=== PATIENT | male | born 1950 | race Caucasian/White ===

== ENCOUNTER 2017-07-18 16:06 | Emergency (ER) | payer MEDICARE ==
[~2017-07-18] VITALS: Ht 170.2 cm; Wt 75.0 kg
[2017-07-18] MEDS ORDERED: ASPI81TA50 PO (16:20)
[2017-07-18] MEDS ORDERED: HYDR25TA6 PO (16:21)
[2017-07-18] MEDS ORDERED: METF500T4 PO (16:21)
[2017-07-18] MEDS ORDERED: [UNRECOGNIZED DRUG - REMARK] (16:21)
[2017-07-18] MEDS ORDERED: LOVA10TA PO (16:21)
[2017-07-18] MEDS ORDERED: LISI-170 PO (16:21)
[2017-07-18] MEDS ORDERED: SODIUM CHLORIDE FLUSH 10ML SYR IVF ONE (17:00)
[2017-07-18] MEDS ORDERED: SODIUM CHLORIDE 0.9% 1,000ML IVBOLUS ONE (17:00)
[2017-07-18 17:14] LABS: HEMATOCRIT 42.7 % (39.2-51.8); HEMOGLOBIN 14.1 g/dL (13.7-18.0)
[2017-07-18 17:26] LABS: ASPARTATE AMINO TRANSFERASE 13 U/L (15-37); BLOOD UREA NITROGEN 22 mg/dL (7-18)
[2017-07-18 17:31] LABS: IS PT STATUS REG ER OR PRE ER? YES
[2017-07-18 19:40] VITALS: BP 133/81
== END 2017-07-18 19:43 | disposition home or self-care (01) ==
LOC: ED 18:40
DX: R55 Syncope and collapse (principal); E86.0 Dehydration; I11.9 Hypertensive heart disease without heart failure; E11.9 Type 2 diabetes mellitus without complications
CPT/HCPCS: 36415; 71010; 80053; 83880; 84484; 85025; 85610; 93005; 96360; 99285; J7030

== ENCOUNTER → 2017-08-30 | Outpatient (CLI) | payer MEDICARE ==
[~2017-08-30] MED LIST: ASPI81TA50 PO; HYDR25TA6 PO; LISI-170 PO; LOVA10TA PO; METF500T4 PO; [UNRECOGNIZED DRUG - REMARK]
== END | disposition home or self-care (01) ==
LOC: CFH 14:05
PROVIDERS: ATTEND Internal Medicine Cardiovascular Disease
DX: I08.3 Combined rheumatic disorders of mitral, aortic and tricuspid valves (principal); I77.819 Aortic ectasia, unspecified site; E11.9 Type 2 diabetes mellitus without complications; E78.5 Hyperlipidemia, unspecified; Z87.891 Personal history of nicotine dependence
CPT/HCPCS: 93306

== ENCOUNTER 2018-02-16 10:24 | Inpatient (IN) | payer MEDICARE ==
[~2018-02-16] VITALS: Ht 167.6 cm; Wt 67.6 kg
[2018-02-16 10:59] LABS: BASOPHILS # (AUTO) 0.02 x10^3/uL (0-0.1); BASOPHILS % (AUTO) 0 % (0-1); EOSINOPHILS % (AUTO) 0 % (1-7); LYMPHOCYTES # (AUTO) 0.49 x10^3/uL (1-3.4); LYMPHOCYTES % (AUTO) 3 % (22-44); MD NO; MEAN CORPUSCULAR HEMOGLOBIN 31.9 pg (27.5-34.5); MEAN CORPUSCULAR HGB CONC 33.5 g/dL (33.2-36.2); MEAN CORPUSCULAR VOLUME 95.2 fL (81-97); MEAN PLATELET VOLUME 8.9 fL (7.4-10.4); MONOCYTES # (AUTO) 0.59 x10^3/uL (0.2-0.8); MONOCYTES % (AUTO) 4 % (2-9); NEUTROPHILS # (AUTO) 14.53 x10^3/uL (1.8-6.8); NEUTROPHILS % (AUTO) 93 % (42-75); PLATELET COUNT 262 x10^3/uL (130-400); RED CELL DISTRIBUTION WIDTH 12.6 % (9.4-14.8)
[2018-02-16] MEDS ORDERED: OMNIPAQUE 350 MG/ML, 100ML BOTTLE ONE (10:59)
[2018-02-16] MEDS ORDERED: SODIUM CHLORIDE 0.9%, 500ML IVBOLUS ONE (11:00)
[2018-02-16 11:09] LABS: INTERNATIONAL NORMALIZED RATIO 1.09 (0.93-1.1); PROTHROMBIN TIME 11.3 Seconds (9.6-11.5)
[2018-02-16] MEDS ORDERED: ALTEPLASE 1 MG/ML ONE (11:22)
[2018-02-16] MEDS ORDERED: ALTEPLASE IV ONE ×3 (11:30→12:30)
[2018-02-16] MEDS: ALTEPLASE IV ONE ×2 (11:35→12:26)
[2018-02-16] MEDS ORDERED: ATOR20TA9 PO (12:02)
[2018-02-16] MEDS ORDERED: strontium PO (12:17)
[2018-02-16] MEDS ORDERED: DONE23TA3 PO (12:17)
[2018-02-16] MEDS ORDERED: HYDR12.58 PO (12:17)
[2018-02-16] MEDS ORDERED: LOSA50TA6 PO (12:17)
[2018-02-16] MEDS ORDERED: METF500T4 PO (12:17)
[2018-02-16] MEDS ORDERED: PIOG15TA2 PO (12:17)
[2018-02-16] MEDS ORDERED: ENALAPRILAT 1.25 MG/ML, 2ML IV PRN (15:00)
[2018-02-16] MEDS ORDERED: DOCUSATE 100 MG CAPSULE PO PRN (15:00)
[2018-02-16] MEDS ORDERED: POLYETHYLENE GLYCOL 17 GM PACKET PO PRN (15:00)
[2018-02-16] MEDS ORDERED: BISACODYL 10 MG SUPP PR PRN (15:00)
[2018-02-16] MEDS ORDERED: ACETAMINOPHEN 650 MG/20.3 ML UDC PO PRN (15:00)
[2018-02-16] MEDS: LACTATED RINGERS 1,000 ML IV SCH (16:19)
[2018-02-16 16:29] VITALS: BP 138/93
[2018-02-16] MEDS: ATORVASTATIN 80 MG TABLET PO SCH (19:43)
[2018-02-16] MEDS: INSULIN LISPRO 100 UNITS/ML, PEN SQ-INSULIN SCH (20:24)
[2018-02-17 04:00] VITALS: BP 142/92
[2018-02-17 04:16] LABS: BASOPHILS # (AUTO) 0.03 x10^3/uL (0-0.1); BASOPHILS % (AUTO) 0 % (0-1); EOSINOPHILS % (AUTO) 1 % (1-7); LYMPHOCYTES # (AUTO) 1.81 x10^3/uL (1-3.4); LYMPHOCYTES % (AUTO) 18 % (22-44); MD NO; MEAN CORPUSCULAR HEMOGLOBIN 32.8 pg (27.5-34.5); MEAN CORPUSCULAR VOLUME 96.4 fL (81-97); MEAN PLATELET VOLUME 8.8 fL (7.4-10.4); MONOCYTES # (AUTO) 0.97 x10^3/uL (0.2-0.8); MONOCYTES % (AUTO) 9 % (2-9); NEUTROPHILS # (AUTO) 7.33 x10^3/uL (1.8-6.8); NEUTROPHILS % (AUTO) 72 % (42-75); PLATELET COUNT 280 x10^3/uL (130-400); RED BLOOD COUNT 4.31 x10^6/uL (4.38-5.82); RED CELL DISTRIBUTION WIDTH 12.8 % (9.4-14.8)
[2018-02-17 04:28] LABS: ALBUMIN 3.5 g/dL (3.4-5.0); ANION GAP 7 mmol/L (5-15); CHLORIDE 104 mmol/L (98-107)
[2018-02-17 04:35] LABS: HEMOGLOBIN A1C 7.7 % (4.2-6.3)
[2018-02-17 04:53] LABS: ALANINE AMINOTRANSFERASE 27 U/L (12-78); ALKALINE PHOSPHATASE 31 U/L (45-117); BILIRUBIN,TOTAL 0.8 mg/dL (0.2-1.0); CHOL/HDL RATIO 2.4; CHOLESTEROL, TOTAL 129 mg/dL (140-239); CREATININE 1.59 mg/dL (0.7-1.3); HDL CHOL % 41 % (26-37); HDL CHOLESTEROL (DIRECT) 53 mg/dL (40-60); LDL CHOLESTEROL,CALCULATED 42 mg/dL (54-169); LDL/HDL RATIO 0.8 (0.5-3.0); TOTAL PROTEIN 7.5 g/dL (6.4-8.2); TRIGLYCERIDES 168 mg/dL (50-200); VLDL CHOLESTEROL 34 mg/dL (0-25)
[2018-02-17] MEDS: LACTATED RINGERS 1,000 ML IV SCH ×2 (05:45→22:06)
[2018-02-17] MEDS: INSULIN LISPRO 100 UNITS/ML, PEN SQ-INSULIN SCH ×4 (05:45→21:00)
[2018-02-17] MEDS ORDERED: ERGOCALCIFEROL 50,000 UNIT CAPSULE PO SCH (12:30)
[2018-02-17] MEDS: ASPIRIN 81 MG TABLET CHEW PO SCH (12:30)
[2018-02-17] MEDS: ENOXAPARIN 40 MG/0.4 ML SQ SCH (18:22)
[2018-02-17 19:50] VITALS: BP 151/84
[2018-02-17] MEDS: ATORVASTATIN 80 MG TABLET PO SCH (22:05)
[2018-02-17] MEDS: FAMOTIDINE 20 MG/2 ML IVPush SCH (22:05)
[2018-02-18 00:20] VITALS: BP 149/85
[2018-02-18 05:16] LABS: BASOPHILS # (AUTO) 0.03 x10^3/uL (0-0.1); BASOPHILS % (AUTO) 0 % (0-1); EOSINOPHILS # (AUTO) 0.12 x10^3/uL (0-0.4); EOSINOPHILS % (AUTO) 1 % (1-7); LYMPHOCYTES # (AUTO) 1.84 x10^3/uL (1-3.4); LYMPHOCYTES % (AUTO) 18 % (22-44); MD NO; MEAN CORPUSCULAR HEMOGLOBIN 32.5 pg (27.5-34.5); MEAN CORPUSCULAR HGB CONC 33.5 g/dL (33.2-36.2); MEAN PLATELET VOLUME 8.7 fL (7.4-10.4); MONOCYTES # (AUTO) 0.81 x10^3/uL (0.2-0.8); MONOCYTES % (AUTO) 8 % (2-9); NEUTROPHILS # (AUTO) 7.47 x10^3/uL (1.8-6.8); NEUTROPHILS % (AUTO) 73 % (42-75); PLATELET COUNT 256 x10^3/uL (130-400); RED BLOOD COUNT 4.11 x10^6/uL (4.38-5.82); RED CELL DISTRIBUTION WIDTH 12.9 % (9.4-14.8)
[2018-02-18 05:18] LABS: ALANINE AMINOTRANSFERASE 25 U/L (12-78); ALBUMIN 3.3 g/dL (3.4-5.0); ANION GAP 8 mmol/L (5-15); CALCIUM 8.4 mg/dL (8.5-10.1); CHLORIDE 104 mmol/L (98-107); CREATININE 1.43 mg/dL (0.7-1.3)
[2018-02-18 05:20] LABS: ALKALINE PHOSPHATASE 29 U/L (45-117); BILIRUBIN,TOTAL 0.8 mg/dL (0.2-1.0); TOTAL PROTEIN 6.9 g/dL (6.4-8.2)
[2018-02-18] MEDS: INSULIN LISPRO 100 UNITS/ML, PEN SQ-INSULIN SCH ×4 (07:00→20:56)
[2018-02-18 08:13] VITALS: BP 156/81
[2018-02-18] MEDS: FAMOTIDINE 20 MG/2 ML IVPush SCH (08:33)
[2018-02-18] MEDS: ASPIRIN 81 MG TABLET CHEW PO SCH (08:33)
[2018-02-18] MEDS: LACTATED RINGERS 1,000 ML IV SCH (13:20)
[2018-02-18 13:53] VITALS: BP 150/78
[2018-02-18] MEDS: ENOXAPARIN 40 MG/0.4 ML SQ SCH (18:12)
[2018-02-18 19:15] VITALS: BP 144/79
[2018-02-18] MEDS: ATORVASTATIN 80 MG TABLET PO SCH (20:56)
[2018-02-19 01:16] VITALS: BP 168/89
[2018-02-19 04:04] LABS: BASOPHILS # (AUTO) 0.07 x10^3/uL (0-0.1); BASOPHILS % (AUTO) 1 % (0-1); EOSINOPHILS # (AUTO) 0.23 x10^3/uL (0-0.4); EOSINOPHILS % (AUTO) 3 % (1-7); LYMPHOCYTES # (AUTO) 1.79 x10^3/uL (1-3.4); LYMPHOCYTES % (AUTO) 20 % (22-44); MD NO; MEAN CORPUSCULAR HEMOGLOBIN 31.9 pg (27.5-34.5); MEAN CORPUSCULAR HGB CONC 33.4 g/dL (33.2-36.2); MEAN CORPUSCULAR VOLUME 95.6 fL (81-97); MEAN PLATELET VOLUME 8.6 fL (7.4-10.4); MONOCYTES # (AUTO) 0.86 x10^3/uL (0.2-0.8); MONOCYTES % (AUTO) 10 % (2-9); NEUTROPHILS # (AUTO) 6.01 x10^3/uL (1.8-6.8); NEUTROPHILS % (AUTO) 67 % (42-75); PLATELET COUNT 240 x10^3/uL (130-400); RED BLOOD COUNT 4.01 x10^6/uL (4.38-5.82); RED CELL DISTRIBUTION WIDTH 12.6 % (9.4-14.8)
[2018-02-19 04:14] LABS: ANION GAP 5 mmol/L (5-15); CALCIUM 8.6 mg/dL (8.5-10.1); CHLORIDE 108 mmol/L (98-107)
[2018-02-19 04:16] LABS: CREATININE 1.24 mg/dL (0.7-1.3)
[2018-02-19] MEDS: INSULIN LISPRO 100 UNITS/ML, PEN SQ-INSULIN SCH ×4 (07:00→21:14)
[2018-02-19 07:31] VITALS: BP 151/89
[2018-02-19] MEDS: LOSARTAN 50MG TABLET PO SCH (08:17)
[2018-02-19] MEDS: ASPIRIN 81 MG TABLET CHEW PO SCH (08:17)
[2018-02-19] MEDS: CARVEDILOL 3.125 MG TABLET PO SCH ×2 (08:24→17:49)
[2018-02-19] MEDS ORDERED: LOSARTAN 25MG TABLET PO SCH (09:00)
[2018-02-19] MEDS ORDERED: POTASSIUM CHLORIDE 20 MEQ TAB.ER.PRT PO ONE (10:00)
[2018-02-19 14:41] VITALS: BP 148/94
[2018-02-19 17:13] LABS: MICROSCOPIC AUTO
[2018-02-19 17:15] LABS: CULTURE INDICATED? NO
[2018-02-19] MEDS: ENOXAPARIN 40 MG/0.4 ML SQ SCH (17:49)
[2018-02-19 18:37] VITALS: BP 144/90
[2018-02-19] MEDS: ATORVASTATIN 80 MG TABLET PO SCH (21:13)
[2018-02-20 01:03] VITALS: BP 134/73
[2018-02-20] MEDS: INSULIN LISPRO 100 UNITS/ML, PEN SQ-INSULIN SCH ×4 (03:38→21:33)
[2018-02-20 05:15] VITALS: BP 153/89
[2018-02-20] MEDS: CARVEDILOL 3.125 MG TABLET PO SCH ×2 (05:16→17:41)
[2018-02-20 08:07] VITALS: BP 157/95
[2018-02-20] MEDS: LOSARTAN 50MG TABLET PO SCH ×2 (08:52→21:34)
[2018-02-20] MEDS: ASPIRIN 81 MG TABLET CHEW PO SCH (08:52)
[2018-02-20 13:50] VITALS: BP 158/93
[2018-02-20] MEDS: ENOXAPARIN 40 MG/0.4 ML SQ SCH (17:41)
[2018-02-20] MEDS: metFORMIN 500 MG TABLET PO SCH (17:41)
[2018-02-20 20:19] VITALS: BP 134/84
[2018-02-20] MEDS: ATORVASTATIN 80 MG TABLET PO SCH (21:34)
[2018-02-21 03:24] VITALS: BP 141/86
[2018-02-21] MEDS: INSULIN LISPRO 100 UNITS/ML, PEN SQ-INSULIN SCH ×4 (03:40→21:05)
[2018-02-21] MEDS: CARVEDILOL 3.125 MG TABLET PO SCH ×2 (06:23→17:33)
[2018-02-21 07:47] LABS: BASOPHILS # (AUTO) 0.04 x10^3/uL (0-0.1); BASOPHILS % (AUTO) 1 % (0-1); EOSINOPHILS # (AUTO) 0.24 x10^3/uL (0-0.4); EOSINOPHILS % (AUTO) 3 % (1-7); LYMPHOCYTES # (AUTO) 1.45 x10^3/uL (1-3.4); LYMPHOCYTES % (AUTO) 20 % (22-44); MD NO; MEAN CORPUSCULAR HEMOGLOBIN 32.5 pg (27.5-34.5); MEAN CORPUSCULAR HGB CONC 34.1 g/dL (33.2-36.2); MEAN CORPUSCULAR VOLUME 95.3 fL (81-97); MEAN PLATELET VOLUME 8.9 fL (7.4-10.4); MONOCYTES # (AUTO) 0.62 x10^3/uL (0.2-0.8); MONOCYTES % (AUTO) 9 % (2-9); NEUTROPHILS # (AUTO) 4.98 x10^3/uL (1.8-6.8); NEUTROPHILS % (AUTO) 68 % (42-75); PLATELET COUNT 261 x10^3/uL (130-400); RED BLOOD COUNT 4.02 x10^6/uL (4.38-5.82); RED CELL DISTRIBUTION WIDTH 12.7 % (9.4-14.8)
[2018-02-21 07:50] LABS: ANION GAP 7 mmol/L (5-15); CALCIUM 8.7 mg/dL (8.5-10.1); CHLORIDE 105 mmol/L (98-107); CREATININE 1.13 mg/dL (0.7-1.3)
[2018-02-21 08:20] VITALS: BP 150/91
[2018-02-21] MEDS: metFORMIN 500 MG TABLET PO SCH ×2 (09:35→17:33)
[2018-02-21] MEDS: LOSARTAN 50MG TABLET PO SCH ×2 (09:35→21:01)
[2018-02-21] MEDS: ASPIRIN 81 MG TABLET CHEW PO SCH (09:35)
[2018-02-21] MEDS ORDERED: ERGO500017 PO (10:01)
[2018-02-21] MEDS ORDERED: ATOR-2 PO (10:01)
[2018-02-21] MEDS ORDERED: CARV3.1212 PO (10:01)
[2018-02-21 14:55] VITALS: BP 142/96
[2018-02-21] MEDS: ENOXAPARIN 40 MG/0.4 ML SQ SCH (17:33)
[2018-02-21 19:36] VITALS: BP 154/88
[2018-02-21] MEDS: ATORVASTATIN 80 MG TABLET PO SCH (21:01)
[2018-02-22 01:52] VITALS: BP 135/85
[2018-02-22] MEDS: INSULIN LISPRO 100 UNITS/ML, PEN SQ-INSULIN SCH ×2 (03:00→08:53)
[2018-02-22] MEDS: CARVEDILOL 3.125 MG TABLET PO SCH (05:26)
[2018-02-22 06:45] VITALS: BP 113/76
[2018-02-22] MEDS: LOSARTAN 50MG TABLET PO SCH (08:51)
[2018-02-22] MEDS: ASPIRIN 81 MG TABLET CHEW PO SCH (08:51)
[2018-02-22] MEDS: metFORMIN 500 MG TABLET PO SCH (08:51)
[2018-02-22] MEDS ORDERED: ENOX40SY4 SQ (10:22)
[2018-02-22] MEDS ORDERED: INSU100I11 SQ-INSULIN (10:31)
== END 2018-02-22 13:12 | disposition short-term general hospital (02) | DRG 61 ==
LOC: ED 11:31 → EDIP 11:32 → ED 11:41 → CCU 12:44 → 4EST 02-17 16:21
PROVIDERS: ADMIT Hospitalist; ATTEND Hospitalist
PROC: 0DH67UZ Insertion of Feeding Device into Stomach, Via Natural or Artificial Opening (ICD-10-PCS; principal; 2018-02-17)
PROC: 3E03317 Introduction of Other Thrombolytic into Peripheral Vein, Percutaneous Approach (ICD-10-PCS; 2018-02-17)
DX: I63.9 Cerebral infarction, unspecified (principal); N17.0 Acute kidney failure with tubular necrosis; G20 Parkinson's disease; G81.94 Hemiplegia, unspecified affecting left nondominant side; E11.9 Type 2 diabetes mellitus without complications; D72.829 Elevated white blood cell count, unspecified; Q21.1 Atrial septal defect; E55.9 Vitamin D deficiency, unspecified; W18.30XA Fall on same level, unspecified, initial encounter; Z60.2 Problems related to living alone; G31.9 Degenerative disease of nervous system, unspecified; E86.0 Dehydration; I65.22 Occlusion and stenosis of left carotid artery; I10 Essential (primary) hypertension; I65.29 Occlusion and stenosis of unspecified carotid artery; I35.1 Nonrheumatic aortic (valve) insufficiency; Y93.89 Activity, other specified; Y92.89 Other specified places as the place of occurrence of the external cause; Z79.899 Other long term (current) drug therapy; Z86.73 Personal history of transient ischemic attack (TIA), and cerebral infarction without residual deficits; Y99.8 Other external cause status
CPT/HCPCS: 36415; 70450; 70496; 70498; 70551; 71045; 74018; 74230; 80047; 80048; 80053; 80061; 81001; 82306; 82607; 82962; 83036; 83735; 85025; 85610; 85730; 87081; 93005; 93306; 96365; J1650; J2997; Q9967; 92523-GN; J1815; J7040; J7120; S0028

== ENCOUNTER 2019-05-05 17:16 | Inpatient (IN) | payer MEDICARE ==
[~2019-05-05] VITALS: Ht 170.2 cm; Wt 55.4 kg
[~2019-05-05 17:16] MED LIST changes: +ACET-814 PO; +ALPR-475 PO; +AMOX1TAB12 PO; +ATOR-2 PO; +ATOR20TA37 PO; +CARV3.1212 PO; +CELE100C PO; +DONE23TA3 PO; +DONE5TAB7 PO; +DOXY100T PO; +DOXY100T9 PO; +ENOX40SY4 SQ; +ERGO500017 PO; +FIBER POWDER PO; +HYDROCHLOROTH12.5 MG PO; +INSU100I11 SQ-INSULIN; +LOSA50TA14 PO; +METF500T17 PO; -METF500T4 PO; +NITR100C56 PO; +OMEP-110 PO; +ONDA4TAB13 SL; +PIOG15TA66 PO; +RELAXIUM PO; +SENN-88 PO; +SODI51CR DT; +TRAM50TA2 PO; +VITAMIN D2 PO; +strontium PO
[2019-05-05 17:40] LABS: BASOPHILS # (AUTO) 0.05 x10^3/uL (0-0.1); BASOPHILS % (AUTO) 1 % (0-1); EOSINOPHILS # (AUTO) 0.12 x10^3/uL (0-0.4); EOSINOPHILS % (AUTO) 2 % (1-7); LYMPHOCYTES # (AUTO) 1.63 x10^3/uL (1-3.4); LYMPHOCYTES % (AUTO) 21 % (22-44); MD NO; MEAN CORPUSCULAR HEMOGLOBIN 33.4 pg (27.5-34.5); MEAN CORPUSCULAR HGB CONC 32.8 g/dL (33.2-36.2); MEAN CORPUSCULAR VOLUME 101.8 fL (81-97); MONOCYTES % (AUTO) 10 % (2-9); NEUTROPHILS # (AUTO) 5.15 x10^3/uL (1.8-6.8); NEUTROPHILS % (AUTO) 66 % (42-75); PLATELET COUNT 247 x10^3/uL (130-400); RED BLOOD COUNT 3.73 x10^6/uL (4.38-5.82); RED CELL DISTRIBUTION WIDTH 15.3 % (9.4-14.8)
--- NOTE | 2019-05-05 17:41 | NUR ---
PT ARRIVED TO ED AT 1715. TAKEN IMMEDIATELY TO CT. PT NOW IN ROOM T4
--- NOTE | 2019-05-05 17:42 | NUR ---
PT KAROLINA KOTHARI [facility] AFTER PT HAD FALL AT 0900 TODAY AND THROUGHOUT THE DAY FAMILY NOTED CHANGES IN PT. CHANGES INCLUDE LOSS OF FINE MOTOR SKILLS AND MUSCLE TONE AND L SIDE DROOPING. NOT ON BLOOD THINNERS. L SIDE EMS LOSS FOOT AND ARM. FAILS TRACKING L EYE. CHANGES NOTED MAINLY AT [phone] TODAY AND EMS CALLED AT 1430.
[2019-05-05 17:48] LABS: INTERNATIONAL NORMALIZED RATIO 1.07 (0.93-1.1); PROTHROMBIN TIME 11.2 Seconds (9.6-11.5)
--- NOTE | 2019-05-05 17:50 | NUR ---
TELE NEUROLOGIST SPEAKING AND EVALUATING PT.
[2019-05-05] MEDS ORDERED: OMNIPAQUE 350 MG/ML, 100ML BOTTLE ONE (17:51)
--- NOTE | 2019-05-05 18:18 | NUR ---
PT HAD COUGH AFTER SIPS OF WATER. PER FAMILY IT IS CHRONIC. ERP NOTIFIED. PER ERP OKAY TO ATTEMPT PO ASA.
[2019-05-05] MEDS ORDERED: LOSA25TA12 PO (18:30)
[2019-05-05] MEDS ORDERED: SODI100G PO (18:30)
[2019-05-05] MEDS ORDERED: ASPIRIN 81 MG TABLET CHEW PO ONE (18:30)
--- NOTE | 2019-05-05 18:57 | NUR ---
REPORT GIVEN TO JUJU BOOTHE RN. ALL QUESTIONS ANSWERED. AWAITING PT TRANSPORT.
[2019-05-05 20:15] VITALS: BP 135/88
[2019-05-05] MEDS ORDERED: ONDANSETRON 4 MG TABLET PO PRN (21:00)
[2019-05-05] MEDS ORDERED: POLYETHYLENE GLYCOL 17 GM PACKET PO PRN (21:00)
[2019-05-05] MEDS ORDERED: ONDANSETRON 2MG/ML, 2ML IVPush PRN (21:00)
[2019-05-05] MEDS ORDERED: BISACODYL 10 MG SUPP PR PRN (21:00)
[2019-05-05] MEDS: INSULIN LISPRO 100 UNITS/ML, PEN SQ-INSULIN SCH (21:00)
[2019-05-05] MEDS ORDERED: morphine SULFATE 10 MG/ML, 1ML IVPush PRN (21:00)
[2019-05-05] MEDS ORDERED: PROMETHAZINE 25 MG/ML, 1ML IM PRN (21:00)
[2019-05-05] MEDS ORDERED: OXYcodone/APAP 5/325MG TABLET PO PRN (21:00)
[2019-05-05 21:08] LABS: C-REACTIVE PROTEIN, QUANT 0.06 mg/dL (0.02-0.49)
[2019-05-05 21:18] LABS: HCT (SEDRATE) 39.4 % (39.2-51.8)
[2019-05-05 21:30] LABS: HEMOGLOBIN A1C 5.9 % (4.2-6.3)
[2019-05-05 21:36] LABS: FREE T4 (FREE THYROXINE) 0.85 ng/dL (0.76-1.46)
[2019-05-05] MEDS: HEPARIN 5,000 UNITS/ML, 1ML SQ SCH (22:11)
[2019-05-06 00:01] VITALS: BP 135/88
[2019-05-06 00:18] VITALS: BP 140/90
[2019-05-06] MEDS: CARVEDILOL 3.125 MG TABLET PO SCH ×3 (01:16→20:24)
[2019-05-06] MEDS: ATORVASTATIN 80 MG TABLET PO SCH ×2 (01:17→20:23)
[2019-05-06] MEDS: SENNOSIDES 8.6 MG TABLET PO SCH ×3 (01:17→20:24)
[2019-05-06 04:29] LABS: BASOPHILS # (AUTO) 0.04 x10^3/uL (0-0.1); BASOPHILS % (AUTO) 1 % (0-1); EOSINOPHILS # (AUTO) 0.19 x10^3/uL (0-0.4); EOSINOPHILS % (AUTO) 2 % (1-7); LYMPHOCYTES # (AUTO) 1.75 x10^3/uL (1-3.4); LYMPHOCYTES % (AUTO) 22 % (22-44); MD NO; MEAN CORPUSCULAR HEMOGLOBIN 33.1 pg (27.5-34.5); MEAN CORPUSCULAR HGB CONC 32.4 g/dL (33.2-36.2); MEAN CORPUSCULAR VOLUME 102.3 fL (81-97); MEAN PLATELET VOLUME 9.8 fL (7.4-10.4); MONOCYTES # (AUTO) 0.73 x10^3/uL (0.2-0.8); MONOCYTES % (AUTO) 9 % (2-9); NEUTROPHILS # (AUTO) 5.22 x10^3/uL (1.8-6.8); NEUTROPHILS % (AUTO) 66 % (42-75); PLATELET COUNT 207 x10^3/uL (130-400); RED BLOOD COUNT 3.29 x10^6/uL (4.38-5.82); RED CELL DISTRIBUTION WIDTH 15.3 % (9.4-14.8)
[2019-05-06 04:42] LABS: CHLORIDE 106 mmol/L (98-107)
[2019-05-06 04:52] LABS: ALANINE AMINOTRANSFERASE 20 U/L (12-78); ALBUMIN 3.4 g/dL (3.4-5.0); ALKALINE PHOSPHATASE 28 U/L (45-117); ANION GAP 4 mmol/L (5-15); BILIRUBIN,TOTAL 0.5 mg/dL (0.2-1.0); CALCIUM 9.6 mg/dL (8.5-10.1); CHOL/HDL RATIO 2.7; CHOLESTEROL, TOTAL 122 mg/dL (140-239); CREATININE 0.89 mg/dL (0.7-1.3); HDL CHOL % 37 % (26-37); HDL CHOLESTEROL (DIRECT) 45 mg/dL (40-60); LDL CHOLESTEROL,CALCULATED 56 mg/dL (54-169); LDL/HDL RATIO 1.2 (0.5-3.0); TOTAL PROTEIN 7.1 g/dL (6.4-8.2); TRIGLYCERIDES 106 mg/dL (50-200); VLDL CHOLESTEROL 21 mg/dL (0-25)
[2019-05-06] MEDS ORDERED: ASPIRIN 81 MG TABLET EC PO SCH (06:00)
[2019-05-06] MEDS: HEPARIN 5,000 UNITS/ML, 1ML SQ SCH ×3 (06:35→21:48)
[2019-05-06] MEDS: INSULIN LISPRO 100 UNITS/ML, PEN SQ-INSULIN SCH ×4 (07:00→20:51)
[2019-05-06 08:00] VITALS: BP 133/95
[2019-05-06] MEDS ORDERED: CLOPIDOGREL 75 MG TABLET PO SCH (09:00)
[2019-05-06] MEDS: HYDROCHLOROTHIAZIDE 12.5 MG CAPSULE PO SCH (09:57)
[2019-05-06] MEDS: OMEPRAZOLE 20 MG CAPSULE.DR PO SCH (09:57)
[2019-05-06] MEDS: LOSARTAN 25MG TABLET PO SCH (09:57)
[2019-05-06] MEDS: DONEPEZIL 5 MG TABLET PO SCH (09:58)
[2019-05-06 12:00] VITALS: BP 138/65
[2019-05-06 15:54] VITALS: BP 143/88
--- NOTE | 2019-05-06 15:55 | NUR ---
REC: NPO/NGT; orange sheet posted in room with swallowing precautions Addendum: 05/06/19 at 1556 by Samantha MALHOTRA Amended: Links added.
[2019-05-06] MEDS: SODIUM CHLORIDE 0.9% 1,000 ML IV SCH (16:05)
[2019-05-06 18:26] LABS: MICROSCOPIC NOT IND
[2019-05-06 18:31] LABS: CULTURE INDICATED? NO
[2019-05-06 20:15] VITALS: BP 156/86
[2019-05-07] MEDS: SODIUM CHLORIDE 0.9% 1,000 ML IV SCH ×2 (01:43→11:29)
[2019-05-07 02:47] VITALS: BP 147/82
[2019-05-07] MEDS: INSULIN LISPRO 100 UNITS/ML, PEN SQ-INSULIN SCH ×3 (03:00→15:00)
[2019-05-07] MEDS: ASPIRIN 81 MG TABLET CHEW PO SCH (05:34)
[2019-05-07] MEDS: HEPARIN 5,000 UNITS/ML, 1ML SQ SCH ×3 (05:34→22:00)
[2019-05-07 06:49] VITALS: BP 155/85
[2019-05-07] MEDS: SENNOSIDES 8.6 MG TABLET PO SCH ×2 (09:00→20:52)
--- NOTE | 2019-05-07 10:41 | NUR ---
REC: Chopped/NTL; orange sheet posted in room with swallowing precautions Addendum: 05/07/19 at 1041 by Samanhta MALHOTRA Amended: Links added.
[2019-05-07] MEDS: CARVEDILOL 3.125 MG TABLET PO SCH ×2 (11:13→20:51)
[2019-05-07] MEDS: LOSARTAN 25MG TABLET PO SCH (11:13)
[2019-05-07] MEDS: DONEPEZIL 5 MG TABLET PO SCH (11:13)
[2019-05-07] MEDS: HYDROCHLOROTHIAZIDE 12.5 MG CAPSULE PO SCH (11:14)
[2019-05-07] MEDS: OMEPRAZOLE 20 MG CAPSULE.DR PO SCH (11:14)
[2019-05-07 12:01] VITALS: BP 134/96
[2019-05-07 20:00] VITALS: BP 119/75
[2019-05-07] MEDS: ATORVASTATIN 80 MG TABLET PO SCH (20:51)
[2019-05-08 00:39] VITALS: BP 138/80
[2019-05-08] MEDS: ASPIRIN 81 MG TABLET CHEW PO SCH (05:24)
[2019-05-08] MEDS: HEPARIN 5,000 UNITS/ML, 1ML SQ SCH ×3 (06:00→21:34)
[2019-05-08 06:47] VITALS: BP 144/79
[2019-05-08] MEDS: DONEPEZIL 5 MG TABLET PO SCH (08:42)
[2019-05-08] MEDS: HYDROCHLOROTHIAZIDE 12.5 MG CAPSULE PO SCH (08:42)
[2019-05-08] MEDS: CARVEDILOL 3.125 MG TABLET PO SCH ×2 (08:42→21:30)
[2019-05-08] MEDS: OMEPRAZOLE 20 MG CAPSULE.DR PO SCH (08:42)
[2019-05-08] MEDS: SENNOSIDES 8.6 MG TABLET PO SCH ×2 (08:42→21:30)
[2019-05-08] MEDS: LOSARTAN 25MG TABLET PO SCH (08:42)
[2019-05-08 12:22] VITALS: BP 147/85
[2019-05-08 18:17] LABS: CULTURE INDICATED? YES; MICROSCOPIC INDICATED
[2019-05-08 19:32] VITALS: BP 104/68
[2019-05-08] MEDS: ATORVASTATIN 80 MG TABLET PO SCH (21:30)
[2019-05-09 01:13] VITALS: BP 117/82
[2019-05-09] MEDS: HEPARIN 5,000 UNITS/ML, 1ML SQ SCH ×3 (05:24→20:01)
[2019-05-09] MEDS: ASPIRIN 81 MG TABLET CHEW PO SCH (05:24)
[2019-05-09 08:15] VITALS: BP 136/80
[2019-05-09] MEDS: SENNOSIDES 8.6 MG TABLET PO SCH ×2 (09:02→20:00)
[2019-05-09] MEDS: CARVEDILOL 3.125 MG TABLET PO SCH ×2 (09:02→20:00)
[2019-05-09] MEDS: OMEPRAZOLE 20 MG CAPSULE.DR PO SCH (09:02)
[2019-05-09] MEDS: HYDROCHLOROTHIAZIDE 12.5 MG CAPSULE PO SCH (09:03)
[2019-05-09] MEDS: LOSARTAN 25MG TABLET PO SCH (09:03)
[2019-05-09] MEDS: DONEPEZIL 5 MG TABLET PO SCH (09:03)
[2019-05-09 13:34] VITALS: BP 107/67
--- NOTE | 2019-05-09 16:16 | NUR ---
05/09/19: Green activity sheet initiated: 1) up to chair for meals 2) seated marching 10 reps 3 times a day educated pt. Addendum: 05/09/19 at 1617 by Lauren Ramires PT Amended: Links added.
[2019-05-09] MEDS: DOCUSATE 100 MG CAPSULE PO PRN (17:11)
[2019-05-09 19:48] VITALS: BP 123/70
[2019-05-09] MEDS: ATORVASTATIN 80 MG TABLET PO SCH (20:00)
[2019-05-10 01:07] VITALS: BP 112/77
[2019-05-10] MEDS: ASPIRIN 81 MG TABLET CHEW PO SCH (05:27)
[2019-05-10] MEDS: HEPARIN 5,000 UNITS/ML, 1ML SQ SCH ×3 (05:28→20:56)
[2019-05-10 08:00] VITALS: BP 129/83
[2019-05-10] MEDS: LOSARTAN 25MG TABLET PO SCH (08:22)
[2019-05-10] MEDS: DONEPEZIL 5 MG TABLET PO SCH (08:22)
[2019-05-10] MEDS: OMEPRAZOLE 20 MG CAPSULE.DR PO SCH (08:22)
[2019-05-10] MEDS: HYDROCHLOROTHIAZIDE 12.5 MG CAPSULE PO SCH (08:23)
[2019-05-10] MEDS: SENNOSIDES 8.6 MG TABLET PO SCH ×2 (08:23→20:56)
[2019-05-10] MEDS: CARVEDILOL 3.125 MG TABLET PO SCH ×2 (08:28→20:56)
[2019-05-10] MEDS: DOCUSATE 100 MG CAPSULE PO PRN (10:21)
[2019-05-10 14:17] VITALS: BP 132/79
[2019-05-10 19:38] VITALS: BP 107/62
[2019-05-10] MEDS: ATORVASTATIN 80 MG TABLET PO SCH (20:56)
[2019-05-10 22:16] LABS: MICROSCOPIC AUTO
[2019-05-10 22:21] LABS: CULTURE INDICATED? YES
[2019-05-11 02:07] VITALS: BP 134/83
[2019-05-11] MEDS: HEPARIN 5,000 UNITS/ML, 1ML SQ SCH ×3 (05:04→22:00)
[2019-05-11] MEDS: ASPIRIN 81 MG TABLET CHEW PO SCH (05:04)
[2019-05-11 08:19] VITALS: BP 147/86
[2019-05-11] MEDS: HYDROCHLOROTHIAZIDE 12.5 MG CAPSULE PO SCH (09:38)
[2019-05-11] MEDS: DONEPEZIL 5 MG TABLET PO SCH (09:38)
[2019-05-11] MEDS: SENNOSIDES 8.6 MG TABLET PO SCH ×2 (09:38→20:51)
[2019-05-11] MEDS: OMEPRAZOLE 20 MG CAPSULE.DR PO SCH (09:38)
[2019-05-11] MEDS: CARVEDILOL 3.125 MG TABLET PO SCH ×2 (09:38→20:54)
[2019-05-11] MEDS: LOSARTAN 25MG TABLET PO SCH (09:39)
[2019-05-11 12:53] VITALS: BP 105/70
[2019-05-11 18:30] VITALS: BP 99/67
[2019-05-11] MEDS: ATORVASTATIN 80 MG TABLET PO SCH (20:51)
[2019-05-11 20:54] VITALS: BP 113/79
[2019-05-12 02:03] VITALS: BP 123/81
[2019-05-12] MEDS: ASPIRIN 81 MG TABLET CHEW PO SCH (05:42)
[2019-05-12] MEDS: HEPARIN 5,000 UNITS/ML, 1ML SQ SCH ×3 (05:49→21:35)
[2019-05-12 08:10] VITALS: BP 120/78
[2019-05-12] MEDS: DONEPEZIL 5 MG TABLET PO SCH (09:18)
[2019-05-12] MEDS: OMEPRAZOLE 20 MG CAPSULE.DR PO SCH (09:18)
[2019-05-12] MEDS: SENNOSIDES 8.6 MG TABLET PO SCH ×2 (09:19→21:33)
[2019-05-12] MEDS: CARVEDILOL 3.125 MG TABLET PO SCH ×2 (09:19→21:35)
[2019-05-12] MEDS: LOSARTAN 25MG TABLET PO SCH (09:19)
[2019-05-12] MEDS: HYDROCHLOROTHIAZIDE 12.5 MG CAPSULE PO SCH (09:19)
[2019-05-12 14:48] VITALS: BP 104/70
[2019-05-12 18:39] VITALS: BP 100/64
[2019-05-12 21:33] VITALS: BP 104/70
[2019-05-12] MEDS: ATORVASTATIN 80 MG TABLET PO SCH (21:33)
[2019-05-13 00:28] VITALS: BP 108/76
[2019-05-13] MEDS: ASPIRIN 81 MG TABLET CHEW PO SCH (05:28)
[2019-05-13] MEDS: HEPARIN 5,000 UNITS/ML, 1ML SQ SCH ×3 (06:02→22:22)
[2019-05-13 07:21] VITALS: BP 157/97
[2019-05-13 08:05] LABS: BASOPHILS # (AUTO) 0.04 x10^3/uL (0-0.1); BASOPHILS % (AUTO) 1 % (0-1); EOSINOPHILS # (AUTO) 0.19 x10^3/uL (0-0.4); EOSINOPHILS % (AUTO) 3 % (1-7); LYMPHOCYTES # (AUTO) 1.04 x10^3/uL (1-3.4); LYMPHOCYTES % (AUTO) 15 % (22-44); MD NO; MEAN CORPUSCULAR HEMOGLOBIN 32.3 pg (27.5-34.5); MEAN CORPUSCULAR HGB CONC 32.4 g/dL (33.2-36.2); MEAN CORPUSCULAR VOLUME 99.6 fL (81-97); MEAN PLATELET VOLUME 8.9 fL (7.4-10.4); MONOCYTES # (AUTO) 0.72 x10^3/uL (0.2-0.8); MONOCYTES % (AUTO) 10 % (2-9); NEUTROPHILS # (AUTO) 5.07 x10^3/uL (1.8-6.8); NEUTROPHILS % (AUTO) 72 % (42-75); PLATELET COUNT 250 x10^3/uL (130-400); RED BLOOD COUNT 3.54 x10^6/uL (4.38-5.82)
[2019-05-13 08:12] LABS: ANION GAP 3 mmol/L (5-15); CALCIUM 9.2 mg/dL (8.5-10.1); CHLORIDE 103 mmol/L (98-107); CREATININE 0.99 mg/dL (0.7-1.3)
[2019-05-13] MEDS: LOSARTAN 25MG TABLET PO SCH (08:20)
[2019-05-13] MEDS: CARVEDILOL 3.125 MG TABLET PO SCH ×2 (08:20→20:32)
[2019-05-13] MEDS: OMEPRAZOLE 20 MG CAPSULE.DR PO SCH (08:20)
[2019-05-13] MEDS: HYDROCHLOROTHIAZIDE 12.5 MG CAPSULE PO SCH (08:20)
[2019-05-13] MEDS: SENNOSIDES 8.6 MG TABLET PO SCH ×2 (08:20→20:32)
[2019-05-13] MEDS: DONEPEZIL 5 MG TABLET PO SCH (08:20)
[2019-05-13] MEDS: LEVOFLOXACIN 500 MG TABLET PO SCH (12:28)
[2019-05-13 15:44] VITALS: BP 116/83
[2019-05-13 20:18] VITALS: BP 113/75
[2019-05-13] MEDS: ATORVASTATIN 80 MG TABLET PO SCH (20:32)
[2019-05-14 01:38] VITALS: BP 129/50
[2019-05-14 01:47] VITALS: BP 116/81
[2019-05-14] MEDS: HEPARIN 5,000 UNITS/ML, 1ML SQ SCH ×3 (05:56→21:23)
[2019-05-14] MEDS: ASPIRIN 81 MG TABLET CHEW PO SCH (06:03)
[2019-05-14 07:55] VITALS: BP 136/90
[2019-05-14] MEDS: SENNOSIDES 8.6 MG TABLET PO SCH ×2 (09:06→21:25)
[2019-05-14] MEDS: DONEPEZIL 5 MG TABLET PO SCH (09:06)
[2019-05-14] MEDS: LOSARTAN 25MG TABLET PO SCH (09:06)
[2019-05-14] MEDS: HYDROCHLOROTHIAZIDE 12.5 MG CAPSULE PO SCH (09:06)
[2019-05-14] MEDS: CARVEDILOL 3.125 MG TABLET PO SCH ×2 (09:06→21:25)
[2019-05-14] MEDS: OMEPRAZOLE 20 MG CAPSULE.DR PO SCH (09:06)
[2019-05-14] MEDS: LEVOFLOXACIN 500 MG TABLET PO SCH ×2 (09:07→11:12)
[2019-05-14 13:07] VITALS: BP 111/76
[2019-05-14] MEDS ORDERED: LEVO500T47 PO (15:14)
[2019-05-14 19:28] VITALS: BP 140/70
[2019-05-14] MEDS: ATORVASTATIN 80 MG TABLET PO SCH (21:25)
[2019-05-15 01:36] VITALS: BP 112/73
[2019-05-15] MEDS: HEPARIN 5,000 UNITS/ML, 1ML SQ SCH ×2 (05:17→13:54)
[2019-05-15] MEDS: ASPIRIN 81 MG TABLET CHEW PO SCH (05:18)
[2019-05-15 07:35] VITALS: BP 126/84
[2019-05-15] MEDS: OMEPRAZOLE 20 MG CAPSULE.DR PO SCH (08:43)
[2019-05-15] MEDS: HYDROCHLOROTHIAZIDE 12.5 MG CAPSULE PO SCH (08:43)
[2019-05-15] MEDS: SENNOSIDES 8.6 MG TABLET PO SCH (08:43)
[2019-05-15] MEDS: LOSARTAN 25MG TABLET PO SCH (08:43)
[2019-05-15] MEDS: DONEPEZIL 5 MG TABLET PO SCH (08:44)
[2019-05-15] MEDS: CARVEDILOL 3.125 MG TABLET PO SCH (08:44)
[2019-05-15 09:04] LABS: BASOPHILS # (AUTO) 0.04 x10^3/uL (0-0.1); BASOPHILS % (AUTO) 1 % (0-1); EOSINOPHILS # (AUTO) 0.11 x10^3/uL (0-0.4); EOSINOPHILS % (AUTO) 2 % (1-7); LYMPHOCYTES # (AUTO) 1.44 x10^3/uL (1-3.4); LYMPHOCYTES % (AUTO) 28 % (22-44); MD NO; MEAN CORPUSCULAR HEMOGLOBIN 32.4 pg (27.5-34.5); MEAN CORPUSCULAR HGB CONC 32.2 g/dL (33.2-36.2); MEAN CORPUSCULAR VOLUME 100.6 fL (81-97); MEAN PLATELET VOLUME 8.4 fL (7.4-10.4); MONOCYTES # (AUTO) 0.47 x10^3/uL (0.2-0.8); MONOCYTES % (AUTO) 9 % (2-9); NEUTROPHILS # (AUTO) 3.07 x10^3/uL (1.8-6.8); NEUTROPHILS % (AUTO) 60 % (42-75); PLATELET COUNT 295 x10^3/uL (130-400); RED CELL DISTRIBUTION WIDTH 14.4 % (9.4-14.8)
[2019-05-15 09:11] LABS: ANION GAP 5 mmol/L (5-15); CALCIUM 9.5 mg/dL (8.5-10.1); CHLORIDE 102 mmol/L (98-107); CREATININE 0.95 mg/dL (0.7-1.3)
[2019-05-15] MEDS: LEVOFLOXACIN 500 MG TABLET PO SCH (11:06)
[2019-05-15 13:20] VITALS: BP 100/55
== END 2019-05-15 14:57 | disposition hospice, home (50) | DRG 70 ==
LOC: ED 17:25 → EDIP 18:40 → 4WST 19:01
PROVIDERS: ADMIT Internal Medicine; ATTEND Internal Medicine
DX: G93.40 Encephalopathy, unspecified (principal); E43 Unspecified severe protein-calorie malnutrition; N39.0 Urinary tract infection, site not specified; I69.354 Hemiplegia and hemiparesis following cerebral infarction affecting left non-dominant side; Z68.1 Body mass index [BMI] 19.9 or less, adult; D53.9 Nutritional anemia, unspecified; E11.51 Type 2 diabetes mellitus with diabetic peripheral angiopathy without gangrene; E78.00 Pure hypercholesterolemia, unspecified; E78.5 Hyperlipidemia, unspecified; F02.80 Dementia in other diseases classified elsewhere, unspecified severity, without behavioral disturbance, psychotic disturbance, mood disturbance, and anxiety; G20 Parkinson's disease; I10 Essential (primary) hypertension; I71.4 Abdominal aortic aneurysm, without rupture; K21.9 Gastro-esophageal reflux disease without esophagitis; W18.30XA Fall on same level, unspecified, initial encounter; Z79.82 Long term (current) use of aspirin; Z80.3 Family history of malignant neoplasm of breast; Z82.49 Family history of ischemic heart disease and other diseases of the circulatory system; Z87.891 Personal history of nicotine dependence; Z79.899 Other long term (current) drug therapy; Y93.89 Activity, other specified; Y92.89 Other specified places as the place of occurrence of the external cause; Y99.8 Other external cause status; I69.392 Facial weakness following cerebral infarction
CPT/HCPCS: 36415; 70450; 70496; 70498; 70551; 74018; 80047; 80048; 80053; 80061; 81001; 81003; 82962; 83036; 84439; 84443; 84481; 85025; 85610; 85651; 85730; 86140; 87086; 87186; 93005; 99291; G0378; J1644; Q9967; 92522-GN; J7030

== ENCOUNTER 2020-03-07 16:08 | Inpatient (IN) | payer MEDICARE ==
[~2020-03-07] VITALS: Ht 175.3 cm; Wt 66.3 kg
[~2020-03-07 16:08] MED LIST changes: -ACET-814 PO; +ACET650T8 PO; -ALPR-475 PO; +ALPR0.5T7 PO; +APIX5TAB PO; +ATOR40TA78 PO; +DOXY-162 PO; -DOXY100T9 PO; +LEVO500T47 PO; +LOSA25TA12 PO; +METF500T27 PO; +NYST1000 PO; +SENN1TAB59 PO; +SODI100G PO
--- NOTE | 2020-03-07 16:12 | NUR ---
Carlos RN: Pt to CT via jessica akhtar/ primary RN Gage & berlin Rebolledo on zoll monitor. MD Ochoa was at bedside to assess pt, pt was BIB [facility], approx 1500 last seen normal & EMS reports that pt had a seizure en route.
[2020-03-07 16:26] LABS: BASOPHILS # (AUTO) 0.05 x10^3/uL (0-0.1); BASOPHILS % (AUTO) 0 % (0-1); EOSINOPHILS # (AUTO) 0.19 x10^3/uL (0-0.4); EOSINOPHILS % (AUTO) 1 % (1-7); LYMPHOCYTES % (AUTO) 28 % (22-44); MD NO; MEAN CORPUSCULAR HEMOGLOBIN 31.4 pg (27.5-34.5); MEAN CORPUSCULAR HGB CONC 32.6 g/dL (33.2-36.2); MEAN CORPUSCULAR VOLUME 96.2 fL (81-97); MEAN PLATELET VOLUME 9.1 fL (7.4-10.4); MONOCYTES # (AUTO) 1.28 x10^3/uL (0.2-0.8); MONOCYTES % (AUTO) 9 % (2-9); NEUTROPHILS # (AUTO) 8.72 x10^3/uL (1.8-6.8); NEUTROPHILS % (AUTO) 62 % (42-75); PLATELET COUNT 344 x10^3/uL (130-400); RED BLOOD COUNT 4.74 x10^6/uL (4.38-5.82); RED CELL DISTRIBUTION WIDTH 14.9 % (9.4-14.8)
[2020-03-07] MEDS ORDERED: LEVETIRACETAM 100 MG/ML, 5ML IV STA (16:27)
[2020-03-07 16:32] LABS: INTERNATIONAL NORMALIZED RATIO 1.03 (0.93-1.1); PROTHROMBIN TIME 10.9 Seconds (9.6-11.5)
--- NOTE | 2020-03-07 16:53 | NUR ---
LATE ENTRY: BIB [facility] FOR INCREASED L SIDED WEAKNESS/OBTUNDED, BASELINE L SIDED WEAKNESS FROM PREV STROKE 01/2018 BUT PER STAFF AT [facility] PT BECAME UNRESPONSIVE, LAST KNOWN WELL @1500, BS 200. PER EMS PT HAD GENERALIZED SEIZURE IN ROUTE. VERSED 5MG GIVEN. NPA IN PLACE, PT ON 15L NRB. PT DNR/OK TO INTUBATE IF TEMPORARY, COPY OF POLST AT BEDSIDE. PT ON ELAQUIS. PT TAKEN TO CT AND KEPPRA STARTED UPON RETURN TO CT. PT ON SEIZURE PRECAUTIONS, NOW ON 8L OXYMASK WITH NPA IN PLACE, PT SNORING, GCS 7, MAINTAINING AIRWAY. MD AWARE, WISH TO HOLD ON INTUBATION PER FAMILY IF POSSIBLE. EX AT BEDSIDE. PT HAD 1X EPISODE OF INCONTINENCE, CHANGED WITH HELP OF PROBATION WORKERTAMIA SIDHU AND XIOMARA BAPTISTE.
--- NOTE | 2020-03-07 16:56 | NUR ---
PER MRI THEY HAVE 50MIN LEFT ON CURRENT EXAM, WILL CALL WHEN READY FOR PT TO COME OVER. GERDA MACKENZIE
[2020-03-07] MEDS ORDERED: LEVETIRACETAM 1,500 MG in SODIUM CHLORIDE 0.9% 100 ML IV ONE (17:00)
--- NOTE | 2020-03-07 17:12 | NUR ---
STRAIGHT CATH PERFORMED AND URINE SAMPLE WALKED TO LAB
[2020-03-07 17:33] LABS: MICROSCOPIC INDICATED
[2020-03-07 17:43] LABS: AMPHETAMINE SCREEN, URINE Negative (Negative); BARBITURATE SCREEN, URINE Negative (Negative); BENZODIAZEPINE SCREEN, URINE Positive (Negative)
[2020-03-07 17:47] LABS: CANNABINOID SCREEN, URINE Negative (Negative); COCAINE SCREEN, URINE Negative (Negative); METHADONE SCREEN, URINE Negative (Negative); OPIATE SCREEN, URINE Negative (Negative)
[2020-03-07 17:51] LABS: CULTURE INDICATED? NO
--- NOTE | 2020-03-07 18:34 | NUR ---
PT STILL SNORING, WITHDRAWING TO PAIN, GCS 7, SPOKE WITH MD AGAIN. PT COUGHING AND CLEARING AIRWAY, HOLD ON INTUBATION FOR NOW. TO MRI @1802, PT TOLERATED WELL, VSS THROUOUT PROCEDURE, PTS O2 INCREASED TO 10LPM WHILE LYING FLAT. PT RETURNED FROM MRI.
--- NOTE | 2020-03-07 19:00 | NUR ---
Assumed care from Juany BAPTISTE, pt has gcs of 9, withdraws to pain, on 8 liters simple o2 mask. Former partner at bedside.
--- NOTE | 2020-03-07 20:04 | NUR ---
Report to Sweta BAPTISTE
--- NOTE | 2020-03-07 20:09 | NUR ---
IF HAVING ANY TROUBLE, PLEASE CALL HIS EMIGDIO- [phone] [facility] [phone]
[2020-03-07] MEDS ORDERED: ONDANSETRON 2MG/ML, 2ML IVPush PRN (20:30)
[2020-03-07 20:32] VITALS: BP 187/125
[2020-03-07 20:37] VITALS: BP 164/103
--- NOTE | 2020-03-07 20:37 | NUR ---
this tech transported pt
[2020-03-07] MEDS ORDERED: LEVETIRACETAM 100 MG/ML, 5ML IVPB SCH (21:00)
[2020-03-08 02:31] VITALS: BP 195/113
[2020-03-08] MEDS: hydrALAzine 20 MG/ML, 1ML IV PRN ×2 (02:34→07:56)
[2020-03-08 04:47] LABS: BASOPHILS # (AUTO) 0.15 x10^3/uL (0-0.1); BASOPHILS % (AUTO) 1 % (0-1); EOSINOPHILS # (AUTO) 0.04 x10^3/uL (0-0.4); EOSINOPHILS % (AUTO) 0 % (1-7); LYMPHOCYTES # (AUTO) 1.48 x10^3/uL (1-3.4); LYMPHOCYTES % (AUTO) 11 % (22-44); MD NO; MEAN CORPUSCULAR HEMOGLOBIN 31.1 pg (27.5-34.5); MEAN CORPUSCULAR HGB CONC 32.6 g/dL (33.2-36.2); MEAN CORPUSCULAR VOLUME 95.3 fL (81-97); MEAN PLATELET VOLUME 9.2 fL (7.4-10.4); MONOCYTES # (AUTO) 1.04 x10^3/uL (0.2-0.8); MONOCYTES % (AUTO) 7 % (2-9); NEUTROPHILS % (AUTO) 81 % (42-75); PLATELET COUNT 291 x10^3/uL (130-400); RED BLOOD COUNT 4.93 x10^6/uL (4.38-5.82)
[2020-03-08 04:52] LABS: ANION GAP 7 mmol/L (5-15); CALCIUM 9.9 mg/dL (8.5-10.1); CHLORIDE 103 mmol/L (98-107); CREATININE 1.15 mg/dL (0.7-1.3)
[2020-03-08] MEDS: INSULIN LISPRO 100 UNITS/ML, PEN SQ-INSULIN SCH ×4 (07:00→20:35)
[2020-03-08 07:55] VITALS: BP 184/124
[2020-03-08 08:25] VITALS: BP 155/97
[2020-03-08 08:43] VITALS: BP 142/87
[2020-03-08] MEDS: ENOXAPARIN 60 MG/0.6 ML SQ SCH ×2 (08:46→21:44)
[2020-03-08] MEDS: LISINOPRIL 20 MG TABLET PO SCH ×2 (09:00→20:34)
[2020-03-08] MEDS ORDERED: LEVETIRACETAM 500 MG in SODIUM CHLORIDE 0.9% 100 ML IV SCH (09:00)
[2020-03-08] MEDS: AMLODIPINE 5 MG TABLET PO SCH ×2 (09:00→20:34)
[2020-03-08] MEDS ORDERED: VALPROATE SODIUM 100 MG/ML, 5ML IV SCH (09:30)
[2020-03-08 09:37] LABS: TROPONIN I < 0.015 ng/mL (0.000-0.045)
[2020-03-08] MEDS: VALPROATE SODIUM 500 MG in SODIUM CHLORIDE 0.9% 100 ML IV SCH ×2 (10:00→18:00)
[2020-03-08] MEDS: CARVEDILOL 3.125 MG TABLET PO SCH ×2 (10:36→20:34)
[2020-03-08] MEDS: LACTATED RINGERS 1,000 ML IV SCH ×2 (11:30→21:47)
[2020-03-08 12:01] VITALS: BP 145/96
[2020-03-08] MEDS ORDERED: hydrALAzine 20 MG/ML, 1ML IV PRN (13:00)
--- NOTE | 2020-03-08 13:28 | NUR ---
Rec: [employer] MANAGER intervention in a SNF. Addendum: 03/08/20 at 1328 by Leslie MALHOTRA Amended: Links added.
[2020-03-08 15:40] LABS: TROPONIN I < 0.015 ng/mL (0.000-0.045)
[2020-03-08 19:15] VITALS: BP 132/86
[2020-03-08] MEDS: ATORVASTATIN 40 MG TABLET PO SCH (20:34)
[2020-03-08 21:38] LABS: TROPONIN I < 0.015 ng/mL (0.000-0.045)
[2020-03-09 01:30] VITALS: BP 163/76
[2020-03-09] MEDS: VALPROATE SODIUM 500 MG in SODIUM CHLORIDE 0.9% 100 ML IV SCH ×3 (02:06→18:24)
[2020-03-09 06:58] VITALS: BP 138/88
[2020-03-09] MEDS: INSULIN LISPRO 100 UNITS/ML, PEN SQ-INSULIN SCH ×4 (07:00→20:16)
[2020-03-09] MEDS: LACTATED RINGERS 1,000 ML IV SCH (07:24)
[2020-03-09] MEDS: AMLODIPINE 5 MG TABLET PO SCH ×2 (07:25→20:15)
[2020-03-09] MEDS: CARVEDILOL 3.125 MG TABLET PO SCH ×2 (07:25→20:15)
[2020-03-09] MEDS: LISINOPRIL 20 MG TABLET PO SCH ×2 (07:25→20:15)
[2020-03-09 07:38] LABS: ALANINE AMINOTRANSFERASE 24 U/L (12-78); ALBUMIN 2.6 g/dL (3.4-5.0); ANION GAP 7 mmol/L (5-15); CALCIUM 9.2 mg/dL (8.5-10.1); CHLORIDE 108 mmol/L (98-107); CREATININE 1.05 mg/dL (0.7-1.3)
[2020-03-09 07:40] LABS: ALKALINE PHOSPHATASE 38 U/L (45-117); BILIRUBIN,TOTAL 0.9 mg/dL (0.2-1.0)
[2020-03-09 08:00] LABS: MEAN CORPUSCULAR HEMOGLOBIN 31.6 pg (27.5-34.5); MEAN CORPUSCULAR VOLUME 95.8 fL (81-97); MEAN PLATELET VOLUME 8.3 fL (7.4-10.4); PLATELET COUNT 254 x10^3/uL (130-400); RED BLOOD COUNT 4.04 x10^6/uL (4.38-5.82); RED CELL DISTRIBUTION WIDTH 15.1 % (9.4-14.8)
[2020-03-09 08:01] LABS: HEMOGRAM NOTE RECHECKED; MD SCAN
[2020-03-09 08:02] LABS: BASOPHILS # (AUTO) 0.04 x10^3/uL (0-0.1); BASOPHILS % (AUTO) 1 % (0-1); EOSINOPHILS # (AUTO) 0.11 x10^3/uL (0-0.4); EOSINOPHILS % (AUTO) 1 % (1-7); LYMPHOCYTES # (AUTO) 1.92 x10^3/uL (1-3.4); LYMPHOCYTES % (AUTO) 22 % (22-44); MONOCYTES # (AUTO) 0.79 x10^3/uL (0.2-0.8); MONOCYTES % (AUTO) 9 % (2-9); NEUTROPHILS # (AUTO) 5.88 x10^3/uL (1.8-6.8); NEUTROPHILS % (AUTO) 67 % (42-75)
[2020-03-09] MEDS: ENOXAPARIN 60 MG/0.6 ML SQ SCH ×2 (08:13→20:15)
[2020-03-09] MEDS ORDERED: POTASSIUM CHLORIDE 40 MEQ in SODIUM CHLORIDE 0.9% 500 ML IV ONE (08:30)
[2020-03-09 12:38] VITALS: BP 152/91
[2020-03-09] MEDS ORDERED: NUT.237L21 PO (16:15)
[2020-03-09] MEDS ORDERED: METF500T17 PO (16:15)
[2020-03-09] MEDS ORDERED: TETR15DR16 OTIC (16:18)
[2020-03-09 20:13] VITALS: BP 147/100
[2020-03-09] MEDS: ATORVASTATIN 40 MG TABLET PO SCH (20:15)
[2020-03-10 00:56] VITALS: BP 136/95
[2020-03-10] MEDS: VALPROATE SODIUM 500 MG in SODIUM CHLORIDE 0.9% 100 ML IV SCH (02:22)
[2020-03-10] MEDS: LACTATED RINGERS 1,000 ML IV SCH (02:23)
[2020-03-10 06:08] LABS: ALBUMIN 2.5 g/dL (3.4-5.0); ANION GAP 3 mmol/L (5-15); CALCIUM 8.8 mg/dL (8.5-10.1); CHLORIDE 111 mmol/L (98-107)
[2020-03-10 06:09] LABS: BASOPHILS # (AUTO) 0.04 x10^3/uL (0-0.1); BASOPHILS % (AUTO) 1 % (0-1); EOSINOPHILS % (AUTO) 3 % (1-7); LYMPHOCYTES # (AUTO) 1.78 x10^3/uL (1-3.4); LYMPHOCYTES % (AUTO) 26 % (22-44); MD NO; MEAN CORPUSCULAR HEMOGLOBIN 30.8 pg (27.5-34.5); MEAN CORPUSCULAR HGB CONC 32.1 g/dL (33.2-36.2); MEAN CORPUSCULAR VOLUME 96.1 fL (81-97); MEAN PLATELET VOLUME 9.5 fL (7.4-10.4); MONOCYTES # (AUTO) 0.62 x10^3/uL (0.2-0.8); MONOCYTES % (AUTO) 9 % (2-9); NEUTROPHILS # (AUTO) 4.16 x10^3/uL (1.8-6.8); NEUTROPHILS % (AUTO) 61 % (42-75); PLATELET COUNT 226 x10^3/uL (130-400)
[2020-03-10 06:11] LABS: ALANINE AMINOTRANSFERASE 20 U/L (12-78); ALKALINE PHOSPHATASE 34 U/L (45-117); BILIRUBIN,TOTAL 0.6 mg/dL (0.2-1.0); CREATININE 0.88 mg/dL (0.7-1.3); TOTAL PROTEIN 6.7 g/dL (6.4-8.2)
[2020-03-10 06:47] VITALS: BP 145/87
[2020-03-10] MEDS: INSULIN LISPRO 100 UNITS/ML, PEN SQ-INSULIN SCH ×4 (07:00→20:44)
[2020-03-10] MEDS: LISINOPRIL 20 MG TABLET PO SCH ×2 (08:58→20:43)
[2020-03-10] MEDS: APIXABAN 5 MG TABLET PO SCH ×2 (08:58→20:43)
[2020-03-10] MEDS: CARVEDILOL 3.125 MG TABLET PO SCH ×2 (08:58→20:44)
[2020-03-10] MEDS: AMLODIPINE 5 MG TABLET PO SCH ×2 (08:58→20:44)
[2020-03-10] MEDS ORDERED: VALPROIC ACID 250 MG CAPSULE PO SCH (09:00)
[2020-03-10] MEDS ORDERED: DIVALPROEX 500 MG TABLET.DR PO SCH (09:00)
[2020-03-10] MEDS ORDERED: APIXABAN 5 MG TABLET PO SCH (09:00)
[2020-03-10] MEDS: VALPROATE SODIUM 250 MG/5 ML UDC PO SCH ×2 (09:42→20:43)
[2020-03-10] MEDS ORDERED: BISACODYL 10 MG SUPP PR PRN (11:30)
[2020-03-10] MEDS: SENNA/DOCUSATE TABLET PO SCH ×2 (11:52→20:44)
[2020-03-10 13:08] VITALS: BP 123/79
[2020-03-10 19:54] VITALS: BP 136/92
[2020-03-10] MEDS: ATORVASTATIN 40 MG TABLET PO SCH (20:44)
[2020-03-11 02:12] VITALS: BP 126/81
[2020-03-11 06:42] VITALS: BP 135/84
[2020-03-11] MEDS: INSULIN LISPRO 100 UNITS/ML, PEN SQ-INSULIN SCH ×2 (07:00→11:09)
[2020-03-11] MEDS: SENNA/DOCUSATE TABLET PO SCH (07:53)
[2020-03-11] MEDS: VALPROATE SODIUM 250 MG/5 ML UDC PO SCH (07:53)
[2020-03-11] MEDS: APIXABAN 5 MG TABLET PO SCH (07:53)
[2020-03-11] MEDS: AMLODIPINE 5 MG TABLET PO SCH (07:53)
[2020-03-11] MEDS: LISINOPRIL 20 MG TABLET PO SCH (07:53)
[2020-03-11] MEDS: CARVEDILOL 3.125 MG TABLET PO SCH (07:53)
[2020-03-11] MEDS ORDERED: LISI-170 PO (11:36)
[2020-03-11] MEDS ORDERED: VALP250S3 PO (11:36)
[2020-03-11] MEDS ORDERED: APIX5TAB PO (13:45)
== END 2020-03-11 14:07 | disposition home health service (06) | DRG 101 ==
LOC: ED 16:23 → EDIP 19:28 → 4EST 20:16
PROVIDERS: ADMIT Internal Medicine; ATTEND Internal Medicine
DX: R56.9 Unspecified convulsions (principal); I69.354 Hemiplegia and hemiparesis following cerebral infarction affecting left non-dominant side; E44.0 Moderate protein-calorie malnutrition; K59.00 Constipation, unspecified; I16.0 Hypertensive urgency; R13.10 Dysphagia, unspecified; D72.829 Elevated white blood cell count, unspecified; E11.9 Type 2 diabetes mellitus without complications; E78.00 Pure hypercholesterolemia, unspecified; F01.50 Vascular dementia, unspecified severity, without behavioral disturbance, psychotic disturbance, mood disturbance, and anxiety; G20 Parkinson's disease; I10 Essential (primary) hypertension; I48.91 Unspecified atrial fibrillation; I71.9 Aortic aneurysm of unspecified site, without rupture; Z66 Do not resuscitate; Z79.01 Long term (current) use of anticoagulants; Z80.3 Family history of malignant neoplasm of breast; Z82.49 Family history of ischemic heart disease and other diseases of the circulatory system; Z86.711 Personal history of pulmonary embolism; Z86.718 Personal history of other venous thrombosis and embolism; Z95.828 Presence of other vascular implants and grafts
CPT/HCPCS: 36415; 70450; 70551; 71045; 80047; 80048; 80053; 80164; 80307; 81001; 82140; 82962; 84145; 84484; 85025; 85610; 85730; 93005; 95819; 96365; 99291; G0378; J1650; J1953; J3480; J0360; J1815; J7040; J7120